=== PATIENT | female | born 1995 | race Caucasian/White ===

== ENCOUNTER 2016-11-05 18:13 | Emergency (ER) | payer OTHER ==
[2016-11-05 18:36] VITALS: BP 124/78; PULSE 87; TEMP 98.2; BMI 22.6
[2016-11-05] MEDS ORDERED: IBUPROFEN 600 MG TABLET (FP) PO ONE (18:36)
[2016-11-05] MEDS ORDERED: DEXAMETHASONE SOD PHOSPHATE 10 MG/1 ML VIAL ONE (19:57)
--- NOTE | 2016-11-05 20:05 | PDOC ---
[id number] 4d COLD SYMPTOMS Time Seen by Provider: 11/05/16 18:34 History Source: Patient Exam Limitations: No Limitations - History of Present Illness Initial Comments: 11/05/16 20:00 21-year-old female presents to the ED with sore throat for the past 2 days associated with chills, difficulty swallowing, and change in voice since yesterday. Patient states has had sore throat intermittently secondary to tonsil stones but never to this extent. Patient states today he even had noticed some blood in her mouth that seemed to be coming from the left side of her throat. patient denies smoking history or recent strep. Timing/Duration: reports: other Severity: reports: moderate Possible Cause: Yes: occasional episodes Associated Symptoms: reports: fever/chills, sore throat Past History - Past Medical History Allergies/Adverse Reactions: Allergies Allergy/AdvReac Type Severity Reaction Status Date / Time No Known Allergies Allergy Verified 11/05/16 18:32 Home Medications: Ambulatory Orders Clindamycin [Cleocin -] 300 mg PO Q6HPO #28 capsule 11/05/16 Ibuprofen [Motrin -] 600 mg PO QID #30 tablet 11/05/16 Lactobacillus Combination No.4 [Probiotic] 1 each PO DAILY #14 capsule 11/05/16 Anemia: No Asthma: No Cancer: No Cardiac Disorders: No CVA: No COPD: No CHF: No GI Disorders: Yes (CONSTIPATION.) Disorders: Yes (PID.) HTN: No Hypercholesterolemia: No Liver Disease: No Psychiatric Problems: Yes (ANXIETY.) Seizures: No Thyroid Disease: No - Reproductive History LMP Normal: Yes Is Patient Now?: No - Immunization History Immunization Up to Date: Yes - Psycho/Social/Smoking Cessation Hx Anxiety: No Suicidal Ideation: No Smoking Status: No Smoking History: Never smoked Have you smoked in the past 12 months: No Number of Cigarettes Smoked Daily: 0 Information on smoking cessation initiated: No Hx Alcohol Use: No Drug/Substance Use Hx: No Substance Use Type: None Patient Lives Alone: No Lives with/in: parents Respiratory Specific PMHX - Complaint Specific PMHX Angina: No Pulmonary Embolus: No Review of Systems - Review of Systems Able to Perform ROS?: Yes Constitutional: Yes: Fever HEENTM: Yes: Throat Pain, Throat Swelling, Difficulty Swallowing Respiratory: No: Symptoms reported Cardiac (ROS): No: Symptoms Reported ABD/GI: No: Symptoms Reported : No: Symptoms Reported Musculoskeletal: No: Symptoms Reported Integumentary: No: Symptoms Reported Endocrine: No: Symptoms Reported *Physical Exam - Vital Signs Last Vital Signs Temp Pulse Resp BP Pulse Ox 98.2 F 87 18 124/78 100 11/05/16 18:33 11/05/16 18:33 11/05/16 18:33 11/05/16 18:33 11/05/16 18:33 - Physical Exam General Appearance: Yes: Nourished, Appropriately Dressed. No: Apparent Distress HEENT: positive: EOMI, TANIA, Muffled/Hoarse voice (mild ( garbled)), Tonsillar Erythema (3 + left tonsil. with erythamatous indurated pinhead sized area to center of left tonsil. uvula midline), Other (no trismus). negative: Pale Conjunctivae Neck: positive: Supple, Lymphadenopathy (L). negative: Tender midline Respiratory/Chest: positive: Lungs Clear, Normal Breath Sounds. negative: Respiratory Distress Cardiovascular: positive: Regular Rhythm, Regular Rate. negative: Tachycardia Gastrointestinal/Abdominal: positive: Soft. negative: Tenderness Musculoskeletal: negative: CVA Tenderness Extremity: positive: Normal Capillary Refill Integumentary: positive: Normal Color, Warm, Moist Neurologic: positive: Motor Strength 5/5 ED Treatment Course - LABORATORY CBC & Chemistry Diagram: 11/05/16 20:30 11/05/16 20:30 - RADIOLOGY Radiology Studies Ordered: Category Date Time Status SOFT TISSUE NECK CT WITH CONTR [CT] Stat CT Scan 11/05/16 19:56 Ordered Medical Decision Making - Medical Decision Making 11/05/16 20:06 Pt with sore throat and difficulty swallowing x 2 days. 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 Pt ordered for labs, IV, and decadron. 11/05/16 21:11 Laboratory Tests 11/05/16 21:00 Urine HCG, Qual Negative 11/05/16 21:51 Laboratory Tests 11/05/16 11/05/16 11/05/16 20:30 20:30 20:30 WBC 7.6 Hgb 13.1 Hct 39.4 Neutrophils % 72.6 Sodium 139 Potassium 4.2 Chloride 105 Carbon Dioxide 25 Anion Gap 9 BUN 10 Creatinine 0.7 D Random Glucose 81 D Calcium 8.8 Total Bilirubin 0.7 D AST 14 L ALT 20 Alkaline Phosphatase 55 Serum , Qual Negative Influenza negative. Lab states they do not have a specimen for strep testing. Patient went to CT to rule out TUNNEL DRIER OPERATOR. Will repeat rapid strep once she returns. I will endorse to VAULT CLERK Liliana to follow up CT and reevaluation. *DC/Admit/Observation/Transfer Diagnosis at time of Disposition: Tonsillitis - Discharge Dispostion Disposition: HOME Condition at time of disposition: Improved - Prescriptions Prescriptions: Clindamycin [Cleocin -] 300 mg PO Q6HPO #28 capsule Ibuprofen [Motrin -] 600 mg PO QID #30 tablet Lactobacillus Combination No.4 [Probiotic] 1 each PO DAILY #14 capsule - Referrals Referrals: Angie Ceballos MD [Primary Care Provider] - 1 week Leo Moncada MD [Staff Physician] - Call tomorrow (Ear, nose, and throat specialist) - Patient Instructions Printed Discharge Instructions: DI for Pharyngitis/Tonsillopharyngitis -- Adult Additional Instructions: -You were seen today for tonsillitis. -CT scan does not show abscess, but does show moderate enlargement of both tonsills as well as swollen glands. -Rest and stay well-hydrated. -Take Clindamycin as prescribed and ibuprofen as needed for pain and fever. -Call [phone] in 2-3 days for the results of your mononucleosis test. -Follow up with the ENT specialist (referral enclosed) for further evaluation. -Return here immediately for difficulty breathing, difficulty swallowing your own saliva, difficulty speaking, or any other concerning symptoms. - Post Discharge Activity Work/School Note: Back to School
[2016-11-05 20:38] LABS: BASOPHIL 0.2 % (0-2.0); EOSINOPHIL 2.4 % (0-4.5); MCH 29.6 pg (25.7-33.7); MCHC 33.3 g/dl (32.0-36.0); MEAN CELL VOLUME 88.9 fl (80-96); MEAN PLT VOLUME 9.6 fl (7.5-11.1); NEUTROPHILS 72.6 % (42.8-82.8); RDW 13.4 % (11.6-15.6); WHITE BLOOD COUNT 7.6 K/mm3 (4.0-10.0)
[2016-11-05 21:08] LABS: ALBUMIN 4.2 g/dl (3.4-5.0); ALK PHOS 55 U/L (45-117); ANION GAP 9 (8-16); BILIRUBIN,TOTAL 0.7 mg/dL (0.2-1.0); CALCIUM 8.8 mg/dL (8.5-10.1); CO2 25 mmol/L (21-32); CREATININE 0.7 mg/dL (0.55-1.02); GLUCOSE,RANDOM 81 mg/dL (74-106); SGPT/ALT 20 U/L (12-78); TOT PROT 7.6 g/dl (6.4-8.2)
[2016-11-05 21:19] LABS: SGOT/AST 14 U/L (15-37)
[2016-11-05 21:53] LABS: PLATELET COMMENT2 SLT PLT CLUMPING; PLATELET ESTIMATE DECREASED (NORMAL)
--- NOTE | 2016-11-05 22:25 | PDOC ---
[id number] 100 11/05/16 18:33 11/05/16 18:33 11/05/16 18:33 11/05/16 18:33 11/05/16 18:33 ED Treatment Course - LABORATORY CBC & Chemistry Diagram: 11/05/16 20:30 11/05/16 20:30 - ADDITIONAL ORDERS Additional order review: Laboratory Results 11/05/16 11/05/16 11/05/16 21:00 20:30 20:30 Sodium 139 Potassium 4.2 Chloride 105 Carbon Dioxide 25 Anion Gap 9 BUN 10 Creatinine 0.7 D Creat Clearance w eGFR > 60 Random Glucose 81 D Calcium 8.8 Total Bilirubin 0.7 D AST 14 L ALT 20 Alkaline Phosphatase 55 Total Protein 7.6 Albumin 4.2 Serum , Qual Negative Urine HCG, Qual Negative 11/05/16 18:45 Influenza Types A,B Antigen (JULISSA) - Final Nasopharyngeal Swab - Final 11/05/16 20:30 RBC 4.43 MCV 88.9 MCHC 33.3 RDW 13.4 MPV 9.6 Neutrophils % 72.6 Lymphocytes % 17.9 Monocytes % 6.9 D Eosinophils % 2.4 Basophils % 0.2 - Medications Given in the ED: ED Medications Discontinued Medications Generic Name Dose Route Start Last Admin Trade Name Freq PRN Reason Stop Dose Admin Ibuprofen 600 mg 11/05/16 18:36 11/05/16 21:25 Motrin - PO 11/05/16 18:37 600 mg ONCE ONE Administration Medical Decision Making - Medical Decision Making 11/05/16 22:25 Assumed care from MARLA Ruth. CT soft tissue neck negative for abscess. There is bilateral tonsillar enlargement with reported moderate narrowing of the airway. On re-examination, patient is well-appearing with no drooling, stridor, or, difficulty breathing. She is phonating normally. She is feeling better after receiving fluids, Decadron, Toradol, and Clindamycin. She and her mother were offered the option of overnight observation, but they prefer to be discharged home to return for any worsening symptoms. Rx'd Clindamycin, ibuprofen. Recommended ENT followup. Return precautions reviewed. *DC/Admit/Observation/Transfer Diagnosis at time of Disposition: Tonsillitis - Discharge Dispostion Disposition: HOME Condition at time of disposition: Improved Admit: No - Prescriptions Prescriptions: Clindamycin [Cleocin -] 300 mg PO Q6HPO #28 capsule Ibuprofen [Motrin -] 600 mg PO QID #30 tablet Lactobacillus Combination No.4 [Probiotic] 1 each PO DAILY #14 capsule - Referrals Referrals: Angie Ceballos MD [Primary Care Provider] - 1 week Leo Moncada MD [Staff Physician] - Call tomorrow (Ear, nose, and throat specialist) - Patient Instructions Printed Discharge Instructions: DI for Pharyngitis/Tonsillopharyngitis -- Adult Additional Instructions: -You were seen today for tonsillitis. -CT scan does not show abscess, but does show moderate enlargement of both tonsills as well as swollen glands. -Rest and stay well-hydrated. -Take Clindamycin as prescribed and ibuprofen as needed for pain and fever. -Call [phone] in 2-3 days for the results of your mononucleosis test. -Follow up with the ENT specialist (referral enclosed) for further evaluation. -Return here immediately for difficulty breathing, difficulty swallowing your own saliva, difficulty speaking, or any other concerning symptoms. - Post Discharge Activity Work/School Note: Back to School
[2016-11-05] MEDS ORDERED: CLINDAMYCIN 600MG PREMIX IVPB 50 ML IVPB ONE (22:48)
[2016-11-05] MEDS ORDERED: CLINDAMYCIN PHOSPHATE 600 MG/4 ML VIAL ONE (22:53)
== END 2016-11-06 00:04 | disposition home or self-care (01) ==
LOC: JERFT 18:13
DX: J03.90 Acute tonsillitis, unspecified (principal); B95.7 Other staphylococcus as the cause of diseases classified elsewhere
CPT/HCPCS: 36415; 70491-TC; 80053; 84703; 85025; 86308; 87070; 87186; 87430; 87804; 96365; 99281-25

== ENCOUNTER 2017-01-22 01:34 | Emergency (ER) | payer OTHER ==
--- NOTE | 2017-01-22 01:41 | PDOC ---
History of Present Illness - General History Source: Patient Exam Limitations: No Limitations - History of Present Illness Initial Comments: 01/22/17 02:04 The patient is a 21 year old female with no significant past medical history who presents to the ED with 4 days of nonproductive cough. Patient reports her cough is persistent that is worsen when she lies down and no alleviating factors. Denies any sick contacts or recent travels. The patient denies fever, chills, diaphoresis, SOB, chest pain, and palpitations. The patient denies abdominal pain, nausea, vomiting, and diarrhea. Allergies: NKDA Social History: Denies tobacco use. No alcohol or drug use reported. Past Surgical History: None reported PCP: Dr. Angie Ceballos <Zaira Eckert - Last Filed: 01/22/17 02:04> - General History Source: Patient <AnmolBebeto estevez - Last Filed: 01/22/17 03:38> - General Stated Complaint: COUGH Time Seen by Provider: 01/22/17 01:41 Past History <Zaira Eckert - Last Filed: 01/22/17 02:04> - Past Medical History Anemia: No Asthma: No Cancer: No Cardiac Disorders: No CVA: No COPD: No CHF: No GI Disorders: Yes (CONSTIPATION.) Disorders: Yes (PID.) HTN: No Hypercholesterolemia: No Liver Disease: No Psychiatric Problems: Yes (ANXIETY.) Seizures: No Thyroid Disease: No - Immunization History Immunization Up to Date: Yes - Psycho/Social/Smoking Cessation Hx Anxiety: No Suicidal Ideation: No Smoking Status: No Smoking History: Never smoked Have you smoked in the past 12 months: No Number of Cigarettes Smoked Daily: 0 Hx Alcohol Use: No Drug/Substance Use Hx: No Substance Use Type: None <Bebeto Smallwood - Last Filed: 01/22/17 03:38> - Past Medical History Allergies/Adverse Reactions: Allergies Allergy/AdvReac Type Severity Reaction Status Date / Time No Known Allergies Allergy Verified 01/22/17 01:42 Home Medications: Ambulatory Orders Albuterol Sulfate Inhaler - [Ventolin HFA Inhaler -] 2 inh IH Q6H #1 inh Guaifenesin AC [Robitussin AC -] 5 ml PO TID #100 liquid MDD 20 05/10/17 Loratadine [Claritin] 10 mg PO DAILY #30 tablet 01/22/17 Methylprednisolone [Medrol Dose Gurmeet] 4 mg PO ASDIR #21 tablet 01/22/17 Review of Systems - Review of Systems Able to Perform ROS?: Yes Comments:: 01/22/17 02:04 CONSTITUTIONAL: Absent: fever, no chills, no fatigue EYES: Absent: visual changes ENT: Absent: ear pain, no sore throat CARDIOVASCULAR: Absent: chest pain, no palpitations RESPIRATORY: +cough Absent: no SOB GI: Absent: abdominal pain, no nausea, no vomiting, no constipation, no diarrhea GENITOURINARY: Absent: dysuria, no frequency, no hematuria MUSCULOSKELETAL: Absent: back pain, no arthralgia, no myalgia SKIN: Absent: rash NEURO: Absent: headache <Zaira Eckert - Last Filed: 01/22/17 02:04> *Physical Exam - Vital Signs Last Vital Signs Temp Pulse Resp BP Pulse Ox 94 H 20 148/86 98 01/22/17 01:42 01/22/17 01:42 01/22/17 01:42 01/22/17 01:42 - Physical Exam Comments: 01/22/17 02:04 GENERAL: Well-appearing, well-nourished. Appears to be mild distress secondary to persistent cough. HEENT: Normocephalic, atraumatic. PERRL, EOM intact. CARDIOVASCULAR: Normal S1, S2. Regular rate and rhythm. PULMONARY: Clear to auscultation bilaterally. ABDOMEN: Soft, non-distended, non-tender. EXTREMITIES: Normal ROM in all four extremities. No gross deformities. SKIN: Warm, dry. No rash NEUROLOGICAL: No focal neurological deficits. <Zaira Eckert - Last Filed: 01/22/17 02:04> ED Treatment Course - Medications Given in the ED: ED Medications Discontinued Medications Generic Name Dose Route Start Last Admin Trade Name Freq PRN Reason Stop Dose Admin Pseudoephedrine HCl 30 mg 01/22/17 01:43 01/22/17 01:50 Sudafed - PO 01/22/17 01:44 30 mg Q6H STA Administration <Zaira Eckert - Last Filed: 01/22/17 02:04> Medical Decision Making - Medical Decision Making 01/22/17 03:37 Dr. Smallwood: The scribe's documentation has been prepared under my direction and personally reviewed by me in its entirery. I confirm that the note above accurately reflects all work, treatment, procedures, and medical decision making performed by me. <Bebeto Smallwood - Last Filed: 01/22/17 03:38> *DC/Admit/Observation/Transfer - Attestations Scribe Attestion: 01/22/17 02:04 Documentation prepared by Zaira Eckert, acting as medical secretary receptionist for Bebeto Smallwood MD/DO. <Zaira Eckert - Last Filed: 01/22/17 02:04> - Discharge Dispostion Admit: No <Bebeto Smallwood - Last Filed: 01/22/17 03:38> Diagnosis at time of Disposition: Cough - Discharge Dispostion Disposition: HOME Condition at time of disposition: Stable - Prescriptions Prescriptions: Methylprednisolone [Medrol Dose Gurmeet] 4 mg PO ASDIR #21 tablet Guaifenesin AC [Robitussin AC -] 5 ml PO TID #100 liquid MDD 20 Albuterol Sulfate Inhaler - [Ventolin HFA Inhaler -] 2 inh IH Q6H #1 inh - Referrals Referrals: Angie Ceballos MD [Primary Care Provider] - Leo Subramanian MD [Staff Physician] - - Patient Instructions Printed Discharge Instructions: DI for Cough -- Adult Additional Instructions: Please follow up in two days for re-evaluation with doctor or the doctor or the doctor referred to you. Use medication as directed. Return if any problems
[2017-01-22] MEDS ORDERED: PSEUDOEPHEDRINE HCL 30 MG TABLET PO STA (01:43)
[2017-01-22] MEDS ORDERED: PSEUDOEPHEDRINE HCL 60 MG TABLET ONE (01:47)
[2017-01-22 01:49] VITALS: BMI 23.4
[2017-01-22] MEDS ORDERED: ALBUTEROL SO4 0.083% IH SOL 2.5 MG/3 ML VIAL.NEB. NEB ONE ×4 (02:26→03:41)
[2017-01-22] MEDS ORDERED: predniSONE 20 MG TABLET (UD) PO ONE (02:58)
[2017-01-22] MEDS ORDERED: predniSONE 20 MG TABLET (UD) ONE (02:59)
[2017-01-22] MEDS ORDERED: guaiFENesin/CODEINE 10 ML UNIT-DOSE CUPS PO ONE (03:31)
[2017-01-22] MEDS ORDERED: guaiFENesin/CODEINE 5 ML UNIT-DOSE CUPS PO ONE (03:38)
[2017-01-22 04:03] VITALS: BP 135/79; PULSE 98
== END 2017-01-22 04:03 | disposition home or self-care (01) ==
LOC: JER 01:34
PROC: 3E0F7GC Introduction of Other Therapeutic Substance into Respiratory Tract, Via Natural or Artificial Opening (ICD-10-PCS; principal; 2017-01-22)
DX: R05 Cough (principal)
CPT/HCPCS: 94640; 99281-25

== ENCOUNTER 2017-01-23 06:45 | Emergency (ER) | payer OTHER ==
[2017-01-23 06:56] VITALS: BMI 23.4
[2017-01-23] MEDS ORDERED: SODIUM CHLORIDE FOR INHALATION 3 ML VIAL.NEB IH ONE (07:26)
[2017-01-23] MEDS ORDERED: guaiFENesin/CODEINE 10 ML UNIT-DOSE CUPS PO ONE (07:56)
--- NOTE | 2017-01-23 08:02 | PDOC ---
History of Present Illness - General Chief Complaint: Cold Symptoms Stated Complaint: COUGH/REVISIT Time Seen by Provider: 01/23/17 07:14 History Source: Patient Exam Limitations: No Limitations - History of Present Illness Initial Comments: 01/23/17 07:35 21-year-old female presents to the ED with complaints of continual cough and midsternal wall sensation worsened with coughing. Patient also complaining of sore throat. Patient states was seen here yesterday and was given prednisone, inhaler and Robitussin with codeine which she states has not alleviated her symptoms. Patient denies history of asthma, medical conditions, smoking, recent travel, recent illness. Patient states dry hacking cough causing her difficulty sleeping but is able to eat and drink, and perform ADLs. Timing/Duration: reports: constant Severity: reports: moderate Possible Cause: Yes: occasional episodes Modifying Factors: improves with: coughing Associated Symptoms: reports: cough, sore throat. denies: shortness of breath, wheezing Past History - Travel Traveled outside of the country in the last 30 days: No Close contact w/someone who was outside of country & ill: No - Past Medical History Allergies/Adverse Reactions: Allergies Allergy/AdvReac Type Severity Reaction Status Date / Time No Known Allergies Allergy Verified 01/23/17 06:57 Home Medications: Ambulatory Orders Albuterol Sulfate Inhaler - [Ventolin HFA Inhaler -] 2 inh IH Q6H #1 inh Guaifenesin AC [Robitussin AC -] 5 ml PO TID #100 liquid MDD 20 01/22/17 Loratadine [Claritin] 10 mg PO DAILY #30 tablet 01/22/17 Methylprednisolone [Medrol Dose Gurmeet] 4 mg PO ASDIR #21 tablet 01/22/17 Anemia: No Asthma: No Cancer: No Cardiac Disorders: No CVA: No COPD: No CHF: No GI Disorders: Yes (CONSTIPATION.) Disorders: Yes (PID.) HTN: No Hypercholesterolemia: No Liver Disease: No Psychiatric Problems: Yes (ANXIETY.) Seizures: No Thyroid Disease: No - Reproductive History LMP Normal: Yes Is Patient Now?: No - Immunization History Immunization Up to Date: Yes - Psycho/Social/Smoking Cessation Hx Anxiety: No Suicidal Ideation: No Smoking Status: No Smoking History: Never smoked Have you smoked in the past 12 months: No Number of Cigarettes Smoked Daily: 0 Hx Alcohol Use: No Drug/Substance Use Hx: No Substance Use Type: None Patient Lives Alone: No Lives with/in: parents Respiratory Specific PMHX - Complaint Specific PMHX Angina: No Pulmonary Embolus: No Review of Systems - Review of Systems Able to Perform ROS?: Yes Constitutional: No: Symptoms Reported HEENTM: No: Symptoms Reported Respiratory: Yes: Cough. No: Shortness of Breath, Wheezing Cardiac (ROS): No: Symptoms Reported ABD/GI: No: Symptoms Reported Musculoskeletal: No: Symptoms Reported Integumentary: No: Symptoms Reported Neurological: No: Symptoms reported Hematologic/Lymphatic: No: Symptoms Reported *Physical Exam - Vital Signs Last Vital Signs Temp Pulse Resp BP Pulse Ox 98.0 F 79 18 118/73 100 01/23/17 06:55 01/23/17 06:55 01/23/17 06:55 01/23/17 06:55 01/23/17 06:55 - Physical Exam General Appearance: Yes: Nourished, Appropriately Dressed. No: Apparent Distress HEENT: positive: EOMI, TANIA, TMs Normal, Pharyngeal Erythema (3 + tonsils alka. no exudate) Neck: positive: Supple Respiratory/Chest: positive: Lungs Clear, Normal Breath Sounds. negative: Respiratory Distress, Accessory Muscle Use Cardiovascular: positive: Regular Rhythm, Regular Rate. negative: Murmur Gastrointestinal/Abdominal: positive: Soft. negative: Tenderness Integumentary: positive: Normal Color, Warm, Moist Neurologic: positive: Normal Mood/Affect, Motor Strength 5/5 ED Treatment Course - Medications Given in the ED: ED Medications Discontinued Medications Generic Name Dose Route Start Last Admin Trade Name Mone PRN Reason Stop Dose Admin Sodium Chloride 3 ml 01/23/17 07:26 01/23/17 07:31 Normal Saline For Inhalation - IH 01/23/17 07:27 3 ml ONCE ONE Administration Medical Decision Making - Medical Decision Making 01/23/17 08:02 Patient will continue dry hacking cough. Patient was placed on albuterol inhaler , prednisone and given Robitussin with codeine. Patient states no relief and had difficulty sleeping through the night. Patient on exam had enlarged erythematous tonsils bilateral soles ordered for rapid strep. Patient also ordered for saline nebulizer to moisturize the passages. If coughing continues will give patient a dose of Robitussin with codeine 10 ML versus 5 mL which is what she was discharged home on. 01/23/17 08:51 Rapid strep was negative. Patient states relief of cough with the 10 mL's of Robitussin with codeine. Patient be also given a prescription for azithromycin as this may be likely due to bronchitis *DC/Admit/Observation/Transfer Diagnosis at time of Disposition: Cough, Bronchitis - Discharge Dispostion Disposition: HOME Condition at time of disposition: Improved - Referrals Referrals: Angie Ceballos MD [Primary Care Provider] - - Patient Instructions Printed Discharge Instructions: DI for Acute Bronchitis, DI for Viral Upper Respiratory Infection -- Adult Additional Instructions: I am reating you for bronchitis due to length of symptoms and your return to the ER. This may be viral or reaction to the high pollen presently so I recommend that you avoid outdoor exposure and take medication as prescribed
[2017-01-23] MEDS ORDERED: guaiFENesin/CODEINE 5 ML UNIT-DOSE CUPS PO ONE (08:09)
[2017-01-23 09:10] VITALS: BP 111/74; PULSE 90; TEMP 97.9
== END 2017-01-23 09:10 | disposition home or self-care (01) ==
LOC: JER 06:45
PROC: 3E0F7GC Introduction of Other Therapeutic Substance into Respiratory Tract, Via Natural or Artificial Opening (ICD-10-PCS; principal; 2017-01-23)
DX: J40 Bronchitis, not specified as acute or chronic (principal); B97.89 Other viral agents as the cause of diseases classified elsewhere
CPT/HCPCS: 87070; 87430; 99282-25

== ENCOUNTER 2019-04-18 21:01 | Emergency (ER) | payer OTHER | END 2019-04-18 23:09 | LOC: JERFT 21:01 ==

== ENCOUNTER 2021-04-06 21:18 | Emergency (ER) | payer OTHER ==
[2021-04-06 21:34] VITALS: BP 108/72; PULSE 82; TEMP 98.7; BMI 22.1
[2021-04-06] MEDS ORDERED: AZITHROMYCIN 250 MG TABLET PO ONE (23:53)
[2021-04-06] MEDS ORDERED: AZITHROMYCIN 250 MG TABLET ONE (23:55)
== END 2021-04-07 00:06 | disposition home or self-care (01) ==
LOC: JERFT 21:18 → JER 21:18
DX: R05 Cough (principal)
CPT/HCPCS: 71046-TC-FY; 99283-25

== ENCOUNTER 2022-12-06 16:10 | Emergency (ER) | payer OTHER ==
[2022-12-06 16:20] VITALS: PULSE 77; RESP 18; BMI 23.0
[2022-12-06 17:37] VITALS: BP 107/74; TEMP 98.2
[2022-12-06 18:41] LABS: BASO % 0.6 % (0-2.0); EOS % 1.9 % (0-4.5); HEMATOCRIT 39.9 % (32.4-45.2); HEMOGLOBIN 13.1 GM/dL (10.7-15.3); MCH 26.3 pg (25.7-33.7); MCHC 32.8 g/dl (32.0-36.0); MEAN CELL VOLUME 80.3 fl (80-96); MEAN PLT VOLUME 9.2 fl (7.5-11.1); MONO % 5.4 % (3.8-10.2); NEUT % 68.1 % (42.8-82.8); PLATELET COUNT 211 10^3/uL (134-434); RBC 4.97 M/mm3 (3.60-5.2); RDW 14.5 % (11.6-15.6); WHITE BLOOD COUNT 9.8 K/mm3 (4.0-10.0)
[2022-12-06 18:46] LABS: INR 1.1 (0.83-1.09); PROTHROMBIN TIME (PATIENT) 12.7 SEC (9.7-13.0)
[2022-12-06 18:48] LABS: ACTIVATED PTT 34.1 SECONDS (25.2-36.5)
[2022-12-06 19:06] LABS: CHLORIDE 104 mmol/L (98-107); SODIUM 136 mmol/L (136-145)
[2022-12-06 19:09] LABS: ANION GAP 5 MMOL/L (8-16); BLOOD UREA NITROGEN 17.4 mg/dL (7-18); CO2 27 mmol/L (21-32)
[2022-12-06 19:10] LABS: ALBUMIN 4.3 g/dl (3.4-5.0); GLUCOSE,RANDOM 83 mg/dL (74-106)
[2022-12-06 19:12] LABS: SGOT/AST 16 U/L (15-37); SGPT/ALT 32 U/L (13-61)
[2022-12-06 19:13] LABS: CREATININE 0.9 mg/dL (0.55-1.3)
[2022-12-06 19:14] LABS: BILIRUBIN,TOTAL 1.3 mg/dL (0.2-1); TOT PROT 8.2 g/dl (6.4-8.2)
[2022-12-06 19:15] LABS: ALK PHOS 49 U/L (45-117)
[2022-12-06 19:17] LABS: N-TERMINAL BNP 33.7 pg/ml (5-125)
[2022-12-06 20:15] LABS: ERYTHROCYTE SEDIMENTATION RATE 7 mm/hr (0-20)
== END 2022-12-06 23:05 | disposition home or self-care (01) ==
LOC: JER 16:10
DX: R07.9 Chest pain, unspecified (principal)
CPT/HCPCS: 0241U-QW; 36415; 70460-TC; 71046-TC-FY; 80053; 83880; 84439; 84443; 84484; 85025; 85379; 85610; 85651; 85730; 86140; 93005; 93010; 93308; 99285-25; Q9967

== ENCOUNTER 2023-05-04 19:04 | Emergency (ER) | payer BC, OTHER ==
[2023-05-04 19:26] VITALS: BMI 25.4
[2023-05-04] MEDS ORDERED: METOCLOPRAMIDE HCL INJECTION 10 MG/2 ML VIAL IVPUSH ONE (20:18)
[2023-05-04] MEDS ORDERED: ACETAMINOPHEN 1000 MG/100 ML BAG IVPB ONE (20:18)
[2023-05-04] MEDS ORDERED: SODIUM CHLORIDE 0.9% 500 ML INFUS.BAG IV ONE (20:18)
[2023-05-04 21:08] LABS: BASO % 0.5 % (0-2.0); EOS % 1.3 % (0-4.5); HEMATOCRIT 38.4 % (32.4-45.2); HEMOGLOBIN 13.1 GM/dL (10.7-15.3); LYMPH % 19.6 % (8-40); MEAN CELL VOLUME 85.2 fl (80-96); MEAN PLT VOLUME 9.2 fl (7.5-11.1); MONO % 11.4 % (3.8-10.2); NEUT % 67.2 % (42.8-82.8); PLATELET COUNT 177 10^3/uL (134-434); RDW 13.7 % (11.6-15.6)
[2023-05-04] MEDS ORDERED: ACETAMINOPHEN INJECTION 100 ML IVPB ONE (21:12)
[2023-05-04] MEDS ORDERED: METOCLOPRAMIDE HCL INJECTION 10 MG/2 ML VIAL ONE (21:12)
[2023-05-04 21:14] LABS: INR 1.1 (0.83-1.09); PROTHROMBIN TIME (PATIENT) 12.7 SEC (9.7-13.0)
[2023-05-04 21:17] LABS: ACTIVATED PTT 30.6 SECONDS (25.2-36.5)
[2023-05-04 21:37] LABS: CHLORIDE 106 mmol/L (98-107); SODIUM 135 mmol/L (136-145)
[2023-05-04 21:40] LABS: ALBUMIN 4.1 g/dl (3.4-5.0); BLOOD UREA NITROGEN 7.9 mg/dL (7-18); CO2 26 mmol/L (21-32); GLUCOSE,RANDOM 91 mg/dL (74-106)
[2023-05-04 21:43] LABS: CREATININE 0.8 mg/dL (0.55-1.3); SGOT/AST 76 U/L (15-37)
[2023-05-04 21:45] LABS: BILIRUBIN,TOTAL 1.2 mg/dL (0.2-1); TOT PROT 8.6 g/dl (6.4-8.2)
[2023-05-04 21:46] LABS: ALK PHOS 63 U/L (45-117)
[2023-05-04 21:49] LABS: ANION GAP 3 MMOL/L (8-16); POTASSIUM 7.9 mmol/L (3.5-5.1); SGPT/ALT 46 U/L (13-61)
[2023-05-04] MEDS ORDERED: methylPREDNISolone NA SUCC 125 MG/2 ML VIAL IVPUSH ONE (22:57)
[2023-05-04 23:08] LABS: POTASSIUM 4.5 mmol/L (3.5-5.1)
[2023-05-04 23:09] LABS: CALCIUM 7.9 mg/dL (8.5-10.1)
[2023-05-04 23:10] LABS: BLOOD UREA NITROGEN 6.9 mg/dL (7-18)
[2023-05-04 23:13] LABS: CREATININE 0.6 mg/dL (0.55-1.3)
[2023-05-05] MEDS ORDERED: methylPREDNISolone NA SUCC 125 MG/2 ML VIAL ONE (00:08)
[2023-05-05 00:15] LABS: URINE APPEARANCE CLEAR; URINE BILIRUBIN NEGATIVE (NEGATIVE); URINE COLOR YELLOW; URINE GLUCOSE (UA) NEGATIVE (NEGATIVE); URINE KETONE NEGATIVE (NEGATIVE); URINE LEUK ESTERASE NEGATIVE (NEGATIVE); URINE NITRITE NEGATIVE (NEGATIVE); URINE PROTEIN NEGATIVE (NEGATIVE); URINE UROBILINOGEN 0.2 mg/dL (0.2-1.0)
[2023-05-05 00:46] VITALS: BP 107/65; PULSE 63; RESP 18; TEMP 97.2
== END 2023-05-05 02:29 | disposition home or self-care (01) ==
LOC: JER 19:04
PROC: 3E033NZ Introduction of Analgesics, Hypnotics, Sedatives into Peripheral Vein, Percutaneous Approach (ICD-10-PCS; principal; 2023-05-04)
PROC: 3E033GC Introduction of Other Therapeutic Substance into Peripheral Vein, Percutaneous Approach (ICD-10-PCS; 2023-05-04)
PROC: 3E033GC Introduction of Other Therapeutic Substance into Peripheral Vein, Percutaneous Approach (ICD-10-PCS; 2023-05-04)
PROC: 3E033GC Introduction of Other Therapeutic Substance into Peripheral Vein, Percutaneous Approach (ICD-10-PCS; 2023-05-04)
DX: R51.9 Headache, unspecified (principal); R50.9 Fever, unspecified; Z20.822 Contact with and (suspected) exposure to COVID-19
CPT/HCPCS: 0241U-QW; 36415; 70450-TC; 80048; 80053; 81003; 83735; 84703; 85025; 85610; 85730; 93005; 93010; 99285-25

== ENCOUNTER 2023-05-06 17:38 | Emergency (ER) | payer BC ==
[2023-05-06 17:44] VITALS: RESP 17; BMI 25.4
[2023-05-06] MEDS ORDERED: ACETAMINOPHEN 500 MG TABLET (FP) PO ONE (18:56)
[2023-05-06] MEDS ORDERED: ACETAMINOPHEN 325 MG TABLET (FP) ONE (18:57)
[2023-05-06] MEDS ORDERED: methylPREDNISolone NA SUCC 125 MG/2 ML VIAL IVPB ONE (19:54)
[2023-05-06] MEDS ORDERED: methylPREDNISolone NA SUCC 125 MG/2 ML VIAL ONE (20:20)
[2023-05-06] MEDS ORDERED: LORazepam 2 MG/ML SDV VIAL IVPUSH ONE (20:35)
[2023-05-06] MEDS ORDERED: SODIUM CHLORIDE 0.9% 500 ML INFUS.BAG IV ONE (20:45)
[2023-05-06 21:39] LABS: BASO % 0.3 % (0-2.0); EOS % 0.3 % (0-4.5); HEMOGLOBIN 13.2 GM/dL (10.7-15.3); LYMPH % 25.6 % (8-40); MCH 28.6 pg (25.7-33.7); MCHC 33.9 g/dl (32.0-36.0); MEAN CELL VOLUME 84.5 fl (80-96); MEAN PLT VOLUME 8.8 fl (7.5-11.1); MONO % 4.4 % (3.8-10.2); NEUT % 69.4 % (42.8-82.8); PLATELET COUNT 268 10^3/uL (134-434); RBC 4.61 M/mm3 (3.60-5.2); RDW 13.3 % (11.6-15.6); VENOUS BASE EXCESS 1.1 mmol/L (-2-2); VENOUS O2 SATURATION 33.9 % (70-80); VENOUS PCO2 29.1 mmHg (38-52); VENOUS PH 7.516 (7.310-7.410); WHITE BLOOD COUNT 14.1 K/mm3 (4.0-10.0)
[2023-05-06 21:48] LABS: INR 0.95 (0.83-1.09)
[2023-05-06 21:50] LABS: ACTIVATED PTT 18.3 SECONDS (25.2-36.5)
[2023-05-06 22:10] LABS: ALBUMIN 4.3 g/dl (3.4-5.0); BLOOD UREA NITROGEN 8.3 mg/dL (7-18); MAGNESIUM 2.1 mg/dL (1.8-2.4)
[2023-05-06 22:13] LABS: CREATININE 0.9 mg/dL (0.55-1.3)
[2023-05-06 22:14] LABS: BILIRUBIN,TOTAL 0.6 mg/dL (0.2-1); TOT PROT 8.1 g/dl (6.4-8.2)
[2023-05-06 22:33] LABS: CALCIUM 9.2 mg/dL (8.5-10.1)
[2023-05-07 00:03] VITALS: BP 126/68; PULSE 79; TEMP 99.7
[2023-05-07] MEDS ORDERED: KETOROLAC TROMETHAMINE 30 MG/1 ML VIAL IM ONE (00:38)
[2023-05-07] MEDS ORDERED: KETOROLAC TROMETHAMINE 15 MG/ML VIAL ONE (00:47)
== END 2023-05-07 02:48 | disposition home or self-care (01) ==
LOC: JER 17:38
PROC: 3E033GC Introduction of Other Therapeutic Substance into Peripheral Vein, Percutaneous Approach (ICD-10-PCS; principal; 2023-05-06)
PROC: 3E033GC Introduction of Other Therapeutic Substance into Peripheral Vein, Percutaneous Approach (ICD-10-PCS; 2023-05-06)
PROC: 3E033GC Introduction of Other Therapeutic Substance into Peripheral Vein, Percutaneous Approach (ICD-10-PCS; 2023-05-06)
PROC: 3E0233Z Introduction of Anti-inflammatory into Muscle, Percutaneous Approach (ICD-10-PCS; 2023-05-07)
DX: R51.9 Headache, unspecified (principal); R11.0 Nausea; G43.909 Migraine, unspecified, not intractable, without status migrainosus
CPT/HCPCS: 36415; 70450-TC; 70551-TC; 80053; 82803; 83735; 85025; 85610; 85730; 86850; 86900; 86901; 99285-25

== ENCOUNTER 2024-10-02 00:57 | Emergency (ER) | payer BC, OTHER ==
[2024-10-02 01:09] VITALS: BP 120/82; PULSE 85; RESP 18; TEMP 98.4; BMI 28.3
[2024-10-02] MEDS ORDERED: ACETAMINOPHEN 500 MG TABLET (FP) ONE (01:47)
[2024-10-02] MEDS ORDERED: ONDANSETRON *ODT* 4 MG TABLET ONE ×2 (01:48→02:34)
[2024-10-02] MEDS: ACETAMINOPHEN 500 MG TABLET (FP) PO ONE (01:52)
[2024-10-02] MEDS: ONDANSETRON *ODT* 4 MG TABLET SL ONE ×2 (01:52→02:38)
[2024-10-02] MEDS ORDERED: FAMOTIDINE 20 MG TABLET ONE (02:35)
[2024-10-02] MEDS: FAMOTIDINE 20 MG TABLET PO ONE (02:38)
== END 2024-10-02 03:21 | disposition home or self-care (01) ==
LOC: JER 00:57
DX: R50.9 Fever, unspecified (principal); R11.2 Nausea with vomiting, unspecified; B34.9 Viral infection, unspecified; R53.81 Other malaise; Z20.822 Contact with and (suspected) exposure to COVID-19
CPT/HCPCS: 0241U-QW; 87651; 99283-25; Q0162